=== PATIENT | female | born 1965 | race Caucasian/White ===

== ENCOUNTER → 2017-07-12 | Outpatient (CLI) | payer OTHER ==
[~2017-07-12] VITALS: Ht 160 cm; Wt 77.2 kg
[~2017-07-12] MED LIST: ALEVE220 MG PO; ALPHA LIPOIC A600 M1 PO; AROMASIN25 MG PO; BIAXIN500 MG; CLARITIN10 MG; CLONIDINE0.1 PO; CVS GLUCOSAMIN PO; MELATONIN3 MG PO; UNICOMPLEX M TA1 TA1 PO; VITAMIN D5000 UNIT PO; albuterol inhaler
--- NOTE | ~2017-07-12 | HPC ---
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 Comorbidity includes history of breast cancer with chemotherapy-induced peripheral neuropathy (bipedal). The patient had right lateral femoral cutaneous nerve block with Stimuplex at last visit with significant improvement of baseline pain. The patient returns to the pain clinic today noting pain has recurred. Pain is in the right thigh, lateral femoral cutaneous distribution. She describes a burning and numbness. The patient has had bariatric surgery. She has lost over 30 kilograms in the past 3 years. She notes she was actually doing well from a paresthesia and pain standpoint in the right side for greater than a year after the last procedure (lateral femoral cutaneous nerve block with Stimuplex monitoring). The patient notes that she drove 3 hours to [place] wearing a tight fitting seat belt on Saturday and following day, Saturday, she spent 3 hours driving back. That was 2 months ago and symptoms have recurred. They are not resolving at this point. She is using Naprosyn [id number] with minimal efficacy. She does take glucosamine and alpha-lipoic acid. PHYSICAL EXAMINATION: GENERAL: Shows a pleasant 51-year-old female, BMI is 30.2 kilograms per meter squared. History of osteoarthritis affecting both knees. VITAL SIGNS: Blood pressure 125/82, pulse 83. MUSCULOSKELETAL: She has not fallen. Does have paresthesia in the right thigh. Lower extremity strength, however, is preserved. Gait is tandem. Subjective burning dysesthesia in her bilateral feet. Status post chemotherapy for breast cancer now 5 years ago. 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 RECOMMENDATIONS: Discussion with the patient today about therapeutic options, would like to repeat lateral femoral cutaneous nerve block with Stimuplex. [address] [address] PAIN MANAGEMENT CONSULTATION Name: FRANCOESA Room #: REG SUNNY Miller#: [id number] Admission: 07/12/17 Attend Phys: Dain Aguilar DO Discharge: Date of : 67 Report #: [id number] Continue [id number]-[id number] anti-inflammatory medications. Follow up as needed. PROCEDURE NOTE: After written and informed consent was obtained, the patient placed in supine position. Skin over the right lower abdomen and groin was cleansed with ChloraPrep. A skin wheal with Xylocaine was raised approximately 1-2 cm inferior medial to the anterior superior iliac spine. A 22-gauge Stimuplex needle was then inserted in an inferior medial trajectory. Stimuplex stimulation was initiated. As needle was advanced, paresthesia was noted into the paresthetic area. As the millivolts was decreased from 1.5 millivolts to 0.5 millivolts, needle continuously advanced towards the center of stimulation. At 0.5 millivolts, the Stimuplex was turned off. A 40 mg triamcinolone plus 3 mL of 0.5% preservative-free bupivacaine plus 3 mL of 1.5% preservative-free Xylocaine with 1:200,000 epinephrine was injected. Needle was removed, the area was cleansed, Band-Aids applied. The patient monitored for an appropriate period of time, discharged in good and stable condition, noting pain was absent on discharge. <ELECTRONICALLY SIGNED> By: Dain Aguilar DO 07/15/17 1026 [id number] [id number] Dain Aguilar DO /nt
[2017-07-12 14:25] VITALS: BP 125/82
== END | disposition home or self-care (01) ==
LOC: PAIN 07:04
DX: G57.11 Meralgia paresthetica, right lower limb (principal); M72.2 Plantar fascial fibromatosis; M79.651 Pain in right thigh; Z85.3 Personal history of malignant neoplasm of breast; Z88.0 Allergy status to penicillin; Z88.8 Allergy status to other drugs, medicaments and biological substances

== ENCOUNTER → 2020-04-15 | Outpatient (CLI) | payer OTHER ==
[~2020-04-15] VITALS: Ht 160 cm; Wt 89.7 kg
--- NOTE | ~2020-04-15 | HPC ---
[facility] [address] [place] [address] PAIN MANAGEMENT CONSULTATION Name: JEFFERSNO GALLARDO Room #: REG SUNNY Angela#: [id number] Admission: 04/15/20 Attend Phys: Tiana Pritchard MD Discharge: Date of : 67 Report #: [id number] THIS REPORT FOR: cc: Kenroy Thomas MD, David R. MD Brown,Tiana Ennis MD ~ CC: Kenroy Pritchard DATE OF SERVICE: 04/15/2020 CHIEF COMPLAINT: Right-sided lateral femoral nerve pain. HISTORY: The patient is a 54-year-old female who has been suffering from pain and discomfort involving her right thigh area. 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 She has had some problem with right lateral femoral cutaneous neuralgia. She has noticed worsening of her pain on the right side. Sitting can be more problematic. This sometimes wakes her at night. There is a numbness involving the right thigh. In February of this year she went to surgery. She underwent a right total shoulder repair. As a result of her being strapped in the sitting position with a seatbelt across her lap. She feels that exacerbated her pain and not it has returned. She is experiencing some numbness and burning sensation. She has been using medications like Excedrin, migraine. Pain improves with repositioning. She feels that the injection in the right lateral femoral cutaneous area was helpful and would like to undergo another treatment. ALLERGIES: PENICILLIN, OXYCODONE, DIPHENHYDRAMINE, VANCOMYCIN. CURRENT MEDICATIONS: Aleve 220 mg, alpha lipoic acid 600 mg, glucosamine, chondroitin. PAIN CLINIC ASSESSMENT AND PQRS: 1. The patient has osteoarthritic changes involving both knees. She is not being treated for rheumatoid arthritis. 2. Height 5 feet 3 inches, weight 197 pounds, BMI is 35. 3. Vital Signs: Blood pressure 140/92, pulse 80, respiratory rate 20, room air saturations 100%. 4. Pain intensity 2-3/10 with use of Excedrin, migraine medication. 5. Fall risk. The patient has not fallen in the last 3 months. 6. Blood thinner. The patient is not on a blood thinning medication. 7. Hypertension. The patient is not being treated for hypertension. 8. Opioids greater than 6 weeks. The patient is not on an opioid regimen. 9. Risk assessment tool reviewed. 10. Recreational drug use: The patient denies. 11. Tobacco: The patient has never smoked. 12. Alcohol. The patient denies frequent use of alcoholic beverages. [facility] [address] [place] [address] PAIN MANAGEMENT CONSULTATION Name: JEFFERSON GALLARDO Room #: REG [facility]#: [id number] Admission: 04/15/20 Attend Phys: Tiana Pritchard MD Discharge: Date of : 67 Report #: [id number] PHYSICAL EXAMINATION: GENERAL: The patient is a well-developed, well-nourished white female. Appears her stated age. She is alert and oriented x 3. Her affect is appropriate. Speech is fluent. HEENT: Normocephalic, atraumatic. Extraocular eye muscles intact. Sclerae nonicteric. Mucous membranes are moist. The patient has pain and discomfort in the right shoulder. She has had a right total shoulder. HEART: Regular rate. LUNGS: Clear. ABDOMEN: Nontender. MUSCULOSKELETAL: The patient has pain and discomfort in the area of the right lateral femoral cutaneous nerve. Notes some numbness, burning sensation. Pain is exacerbated by certain positioning. Palpation in this area can increase some of the discomfort. Repositioning can decrease some of the pain and discomfort. IMPRESSION: 1. 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 2. History of breast cancer, status post bilateral mastectomies with chemotherapy and radiation. 3. History of chemotherapy-induced peripheral neuropathy. 4. Neuropathic pain. RECOMMENDATIONS: We discussed the treatment options with the patient. She has undergone treatment for this in the past. Noticed that after the injection of the right lateral femoral cutaneous nerve that things improved. She would like to proceed with a treatment course today. We discussed the risks and benefits of the procedure, which could include, urinary tract infection, increased muscle soreness, nerve damage, bleeding, weakness of the femoral nerve should the medication wick in that area. She elects to proceed. PROCEDURE NOTE: The patient was assisted in getting on the examination table. She was placed in the supine position. The right femoral area was sterilely prepped with a chlorhexidine solution and allowed to dry. A skin wheal with 0.25% bupivacaine using a 25-gauge styletted needle was inserted. A 25-gauge needle was then advanced in the area, 2 cm medial and 2 cm inferior to the anterior superior iliac spine. A stimulation of the needle reproduce a reproduction of her pain. A total of 40 mg triamcinolone and 5 mL of 0.5% bupivacaine was injected in a carmona distribution. Needle was removed. The area was cleansed. Band-Aid was applied. The patient was monitored for an appropriate amount of time. She was discharged in good and stable condition. Noted some improvement in her pain at the baseline. She will follow up in the near future. [address] [address] PAIN MANAGEMENT CONSULTATION Name: JEFFERSON GALLARDO Room #: REG SUNNY Miller#: [id number] Admission: 04/15/20 Attend Phys: Tiana Pritchard MD Discharge: Date of : 67 Report #: [id number] We would like to thank you for letting us participate in her care. We hope she continues to improve. By: [id number] Tiana Pritchard MD /ISMAEL
[2020-04-15 09:53] VITALS: BP 140/92
--- NOTE | 2020-04-15 10:18 | NUR ---
Pain Clinic Assessment: 1. History of Osteoarthritis: BOTH KNEES History of Rheumatoid Arthritis: NO 2. Height: 5 ft. 3 in. 160.0 cm. Weight: 197.8 lb. oz. 89.722 kg. Patient's BMI: 35.0 3. Vital Signs: BP: 140/92 Pulse: 80 Resp: 20 Temp: 02 Sat: 100 ECG Mon: 4. Pain Intensity: 2-3 WITH EXCED MIGRAIN 5. Fall Risk: Dizziness: N Needs help standing or walking: N Fallen in the last 3 months: N Fall risk comments: 6. Patient on Blood Thinner: None 7. History of Hypertension: N 8. Opioid Therapy greater than 6 weeks: N Opiate Contract Signed: 9. Risk Assessment Tool Provided: 10. Functional Assessment Tool: 11. Recreational Drug Use: Never Drug Type: Tobacco Use: Never Smoker Tobacco Type: Amount or Packs/day: How Many Years: Alcohol Use: No Frequency: Quant:
== END | disposition home or self-care (01) ==
LOC: PAIN 07:03
PROVIDERS: ATTEND Anesthesiology Pain Medicine
DX: G57.11 Meralgia paresthetica, right lower limb (principal); M79.651 Pain in right thigh; Z98.890 Other specified postprocedural states; Z79.899 Other long term (current) drug therapy; Z85.3 Personal history of malignant neoplasm of breast; Z88.0 Allergy status to penicillin; Z88.8 Allergy status to other drugs, medicaments and biological substances

== ENCOUNTER → 2020-05-06 | Outpatient (CLI) | payer OTHER ==
[~2020-05-06] VITALS: Ht 160 cm; Wt 90.8 kg
--- NOTE | ~2020-05-06 | HPC ---
[facility] [address] [place] [address] PAIN MANAGEMENT CONSULTATION Name: JEFFERSON GALLARDO Room #: REG SUNNY Angela#: [id number] Admission: 05/06/20 Attend Phys: Tiana Pritchard MD Discharge: Date of : 67 Report #: [id number] THIS REPORT FOR: cc: Kenroy Thomas MD, David R. MD Brown,Tiana Ennis MD ~ CC: Kenroy Pritchard DATE OF SERVICE: 05/06/2020 PRIMARY CARE PHYSICIAN: Kenroy Thomas MD CHIEF COMPLAINT: Right thigh and right leg discomfort. 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 She has had problems with pain involving the right side of her leg. She has suffered from right lateral femoral cutaneous neuralgia. She had this some years ago and she underwent surgery for her shoulder. As a result of strapping her into the sitting position, she has noted more pain on the right side. She did undergo an injection in the past. She noted improvement. At this point, she has noticed a return of the pain and discomfort and has returned to the pain clinic for an additional injection. She rates her pain as 5/10. She uses Excedrin to help with the pain. ALLERGIES: PENICILLIN, OXYCODONE, DIPHENHYDRAMINE, VANCOMYCIN. CURRENT MEDICATIONS: Aleve 220 mg, alpha lipoic acid 600 mg, glucosamine/chondroitin. PAIN CLINIC ASSESSMENT AND PQRS: 1. The patient has some osteoarthritic changes involving both of her knees. She is not being treated for rheumatoid arthritis. 2. Height 5 feet 3 inches, weight 200 pounds. BMI 35.5. 3. Vital Signs: Blood pressure 155/96, pulse 79, respiratory rate 16, room air saturation is 99%. 4. Pain intensity, 5/10. 5. Fall history: The patient has not fallen. 6. Blood thinner. The patient is not on a blood thinning medication. 7. Hypertension. The patient is not being treated for hypertension. 8. Opioids greater than 6 weeks. The patient is not receiving opioids on a regular basis. 9. Risk assessment tool, low for opioid use. 10. Functional assessment tool, reviewed. 11. Recreational drug use: The patient denies. 12. Alcohol: The patient drinks socially. [address] [address] PAIN MANAGEMENT CONSULTATION Name: JEFFERSON GALLARDO Room #: REG SUNNY Angela#: [id number] Admission: 05/06/20 Attend Phys: Tiana Pritchard MD Discharge: Date of : 67 Report #: [id number] PHYSICAL EXAMINATION: GENERAL: The patient is a well-developed, well-nourished white female. Appears her stated age. She is alert and oriented x 3. Her affect is appropriate. She is nervous. Speech is fluent. HEENT: Normocephalic, atraumatic. Extraocular eye muscles intact. Sclerae nonicteric. Mucous membranes are moist. The patient is wearing a facial covering. NECK: The patient has some pain and discomfort in her right shoulder. She has had a right total shoulder replacement. HEART: Regular rate. LUNGS: Clear to auscultation. ABDOMEN: Nontender. MUSCULOSKELETAL: The patient without significant scoliosis, kyphosis or lordosis. Does have pain and discomfort in the right lateral femoral cutaneous nerve area. Notes some numbness, tingling and burning sensation. Notes pain is exacerbated by positioning. Dragging her hand over the affected area and reproduces some level of discomfort. IMPRESSION: 1. 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 2. History of breast cancer, status post bilateral mastectomies with chemotherapy and radiation. 3. History of chemotherapy-induced peripheral neuropathy. 4. Neuropathic pain. 5. Right total shoulder replacement. RECOMMENDATIONS: We discussed treatment options with the patient. The patient has undergone this procedure in the past. She has been improved by the procedure. We discussed the possible complication of the procedure. They include but are not limited to infection, worsening pain, no improvement in pain, bleeding. The patient elects to proceed. PROCEDURE NOTE: The patient was taken to the procedure area. She was then assisted in getting on the examination table. She was placed in the supine position. The right femoral area was sterilely prepped with a chlorhexidine solution and allowed to dry. A skin wheal was placed with 0.25% bupivacaine. A 25-gauge needle was then inserted. The needle was advanced 2 cm medially and approximately 2 cm inferiorly from the anterior superior iliac spine. The needle had a stimulator in place attached to it. The patient states that this did reproduce her discomfort. A total of 40 mg triamcinolone and 6 mL of 0.5% bupivacaine was injected. The needle was removed. The patient's area was cleansed. Band-Aid was placed. She was then taken to the procedure area. She remained there for an appropriate amount of time. There was no numbness down in the right leg. She will follow up in the future as needed. [address] [address] PAIN MANAGEMENT CONSULTATION Name: JEFFERSON GALLARDO Room #: REG SUNNY [place]#: [id number] Admission: 05/06/20 Attend Phys: Tiana Pritchard MD Discharge: Date of : 67 Report #: [id number] We would like to thank you for letting us participate in her care. We hope she continues to improve. By: [id number] Tiana Pritchard MD /ISMAEL
[2020-05-06 08:29] VITALS: BP 155/96
--- NOTE | 2020-05-06 08:32 | NUR ---
Pain Clinic Assessment: 1. History of Osteoarthritis: BOTH KNEES History of Rheumatoid Arthritis: NO 2. Height: 5 ft. 3 in. 160.0 cm. Weight: 200.2 lb. oz. 90.810 kg. Patient's BMI: 35.5 3. Vital Signs: BP: 155/96 Pulse: 79 Resp: 16 Temp: 02 Sat: 99 ECG Mon: 4. Pain Intensity: 5 5. Fall Risk: Dizziness: N Needs help standing or walking: N Fallen in the last 3 months: N Fall risk comments: 6. Patient on Blood Thinner: None 7. History of Hypertension: N 8. Opioid Therapy greater than 6 weeks: N Opiate Contract Signed: 9. Risk Assessment Tool Provided: 10. Functional Assessment Tool: 11. Recreational Drug Use: Never Drug Type: Tobacco Use: Never Smoker Tobacco Type: Amount or Packs/day: How Many Years: Alcohol Use: Yes Frequency: Weekly Quant: SOCIALLY
== END | disposition home or self-care (01) ==
LOC: PAIN 06:55
PROVIDERS: ATTEND Anesthesiology Pain Medicine
DX: G57.21 Lesion of femoral nerve, right lower limb (principal); G89.29 Other chronic pain; Z98.890 Other specified postprocedural states; Z79.899 Other long term (current) drug therapy; Z96.611 Presence of right artificial shoulder joint; Z85.3 Personal history of malignant neoplasm of breast; Z88.0 Allergy status to penicillin